=== PATIENT | female | born 1940 | race Caucasian/White ===

== ENCOUNTER → 2023-04-07 15:18 | Outpatient (REF) | payer MEDICARE, BC, SELFPAY | LOC: REG 15:18 | PROVIDERS: ATTENDING PHYSICIAN Dermatology | DX: Z51.81 Encounter for therapeutic drug level monitoring (principal); Z79.899 Other long term (current) drug therapy | CPT/HCPCS: 36415; 82955 ==

== ENCOUNTER → 2023-05-16 11:24 | Outpatient (REF) | payer MEDICARE, BC, SELFPAY ==
[2023-05-16 12:31] LABS: % Eosinophils 3.1 % (0-6); % Immature Granulocytes 0.3 % (0-0.5); % Lymphocytes 27.9 % (20.5-51.1); % Monocytes 11.4 % (1.7-9.3); % Neutrophils 56.3 % (42.2-75.2); Absolute Basophils 0.1 10^3/uL (0-0.2); Absolute Eosinophils 0.2 10^3/uL (0-0.7); Absolute Lymphocytes 1.9 10^3/uL (1.2-3.4); Absolute Monocytes 0.8 10^3/uL (0.1-0.6); Absolute Neutrophils 3.8 10^3/uL (1.4-6.5); Hematocrit 38.2 % (37.0-47.0); Hemoglobin 12.9 g/dL (12.0-16.0); Mean Corp Hgb Conc. 33.8 g/dL (33.0-37.0); Mean Corpuscular Hgb 32.8 pg (27.0-31.0); Mean Corpuscular Volume 97.2 fL (81.0-99.0); Mean Platelet Volume 10.4 fL (7.4-10.4); Nucleated Red Blood Cells % 0 %; Platelet Count 268 10^3/uL (130-400); Red Blood Cell Count 3.93 10^6/uL (4.20-5.40); Red Cell Dist. Width 12.8 % (11.5-14.5); White Blood Cell Count 6.8 10^3/uL (4.8-10.8)
[2023-05-16 12:58] LABS: ALT (SGPT) 21 U/L (0-35); AST (SGOT) 37 U/L (14-36); Albumin 3.7 g/dl (3.5-5.0); Alkaline Phosphatase 85 U/L (38-126); Blood Urea Nitrogen 19 mg/dl (7-17); Calcium 9.7 mg/dl (8.4-10.2); Carbon Dioxide 25 mmol/L (22-30); Chloride 103 mmol/L (98-107); Glucose 99 mg/dl (70-99); Potassium 4.7 mmol/L (3.5-5.1); Sodium 138 mmol/L (135-145); Total Bilirubin 0.9 mg/dl (0.2-1.3); Total Protein 6.5 g/dl (6.3-8.2); eGFR > 60.00
== END ==
LOC: REG 11:24
PROVIDERS: ATTENDING PHYSICIAN Dermatology
DX: Z79.899 Other long term (current) drug therapy (principal); L12.0 Bullous pemphigoid
CPT/HCPCS: 36415; 80053; 85025

== ENCOUNTER → 2023-05-31 10:33 | Outpatient (REF) | payer MEDICARE, BC, SELFPAY ==
[2023-05-31 12:02] LABS: % Basophils 0.7 % (0-2); % Eosinophils 4.7 % (0-6); % Immature Granulocytes 0.6 % (0-0.5); % Lymphocytes 20.2 % (20.5-51.1); % Monocytes 13.6 % (1.7-9.3); % Neutrophils 60.2 % (42.2-75.2); Absolute Basophils 0.1 10^3/uL (0-0.2); Absolute Eosinophils 0.4 10^3/uL (0-0.7); Absolute Immature Granulocytes 0.1 10^3/uL (0-0.05); Absolute Lymphocytes 1.7 10^3/uL (1.2-3.4); Absolute Monocytes 1.2 10^3/uL (0.1-0.6); Absolute Neutrophils 5.1 10^3/uL (1.4-6.5); Hematocrit 32.7 % (37.0-47.0); Hemoglobin 10.9 g/dL (12.0-16.0); Mean Corp Hgb Conc. 33.3 g/dL (33.0-37.0); Mean Corpuscular Hgb 32.2 pg (27.0-31.0); Mean Corpuscular Volume 96.7 fL (81.0-99.0); Mean Platelet Volume 10.4 fL (7.4-10.4); Nucleated Red Blood Cells % 0.6 %; Platelet Count 277 10^3/uL (130-400); Red Blood Cell Count 3.38 10^6/uL (4.20-5.40); Red Cell Dist. Width 14.1 % (11.5-14.5); White Blood Cell Count 8.4 10^3/uL (4.8-10.8)
== END ==
LOC: HWLAB 10:33
PROVIDERS: ATTENDING PHYSICIAN Dermatology
DX: Z79.899 Other long term (current) drug therapy (principal)
CPT/HCPCS: 36415; 85025

== ENCOUNTER → 2023-07-05 13:06 | Outpatient (REF) | payer MEDICARE, BC, SELFPAY ==
[2023-07-05 15:11] LABS: % Basophils 1.2 % (0-2); % Immature Granulocytes 1.2 % (0-0.5); % Lymphocytes 85.7 % (20.5-51.1); % Monocytes 10.7 % (1.7-9.3); % Neutrophils 1.2 % (42.2-75.2); ALT (SGPT) 24 U/L (0-35); AST (SGOT) 21 U/L (14-36); Absolute Lymphocytes 0.7 10^3/uL (1.2-3.4); Absolute Monocytes 0.1 10^3/uL (0.1-0.6); Albumin 3.7 g/dl (3.5-5.0); Alkaline Phosphatase 59 U/L (38-126); Blood Urea Nitrogen 21 mg/dl (7-17); Calcium 9.3 mg/dl (8.4-10.2); Carbon Dioxide 23 mmol/L (22-30); Chloride 100 mmol/L (98-107); Glucose 108 mg/dl (70-99); Hematocrit 31.3 % (37.0-47.0); Hemoglobin 10.1 g/dL (12.0-16.0); Mean Corp Hgb Conc. 32.3 g/dL (33.0-37.0); Mean Corpuscular Hgb 33.6 pg (27.0-31.0); Nucleated Red Blood Cells % 0 %; Platelet Count 488 10^3/uL (130-400); Red Blood Cell Count 3.01 10^6/uL (4.20-5.40); Red Cell Dist. Width 13.2 % (11.5-14.5); Sodium 128 mmol/L (135-145); Total Bilirubin 0.9 mg/dl (0.2-1.3); Total Protein 6.4 g/dl (6.3-8.2); White Blood Cell Count 0.8 10^3/uL (4.8-10.8); eGFR > 60.00
== END ==
LOC: HWLAB 13:06
PROVIDERS: ATTENDING PHYSICIAN Dermatology; FAMILY PHYSICIAN Physician Assistant Medical
DX: Z79.899 Other long term (current) drug therapy (principal)
CPT/HCPCS: 36415; 80053; 85025

== ENCOUNTER → 2023-07-06 10:54 | Outpatient (REF) | payer MEDICARE, BC, SELFPAY ==
[2023-07-06 12:58] LABS: % Basophils 1.2 % (0-2); % Immature Granulocytes 0.6 % (0-0.5); % Lymphocytes 88.2 % (20.5-51.1); % Monocytes 8.7 % (1.7-9.3); % Neutrophils 1.3 % (42.2-75.2); Absolute Lymphocytes 1.4 10^3/uL (1.2-3.4); Absolute Monocytes 0.1 10^3/uL (0.1-0.6); Hematocrit 28.9 % (37.0-47.0); Hemoglobin 9.4 g/dL (12.0-16.0); Mean Corp Hgb Conc. 32.5 g/dL (33.0-37.0); Mean Corpuscular Hgb 34.1 pg (27.0-31.0); Mean Corpuscular Volume 104.7 fL (81.0-99.0); Nucleated Red Blood Cells % 1.2 %; Red Blood Cell Count 2.76 10^6/uL (4.20-5.40); Red Cell Dist. Width 13.4 % (11.5-14.5); White Blood Cell Count 1.6 10^3/uL (4.8-10.8)
[2023-07-06 13:10] LABS: Platelet Count 437 10^3/uL (130-400)
== END ==
LOC: HWLAB 10:54
PROVIDERS: ATTENDING PHYSICIAN Dermatology; FAMILY PHYSICIAN Physician Assistant Medical
DX: Z79.899 Other long term (current) drug therapy (principal)
CPT/HCPCS: 36415; 85025

== ENCOUNTER → 2023-07-14 12:11 | Outpatient (REF) | payer MEDICARE, BC, SELFPAY ==
[2023-07-14 15:34] LABS: Absolute Neutrophils 0.1 10^3/uL (1.4-6.5); Hematocrit 27.4 % (37.0-47.0); Hemoglobin 9.4 g/dL (12.0-16.0); Mean Corp Hgb Conc. 34.3 g/dL (33.0-37.0); Mean Corpuscular Hgb 32.8 pg (27.0-31.0); Mean Corpuscular Volume 95.5 fL (81.0-99.0); Mean Platelet Volume 9.6 fL (7.4-10.4); Nucleated Red Blood Cells % 0 %; Platelet Count 632 10^3/uL (130-400); Red Blood Cell Count 2.87 10^6/uL (4.20-5.40); White Blood Cell Count 1.5 10^3/uL (4.8-10.8)
[2023-07-14 15:44] LABS: ALT (SGPT) 17 U/L (0-35); AST (SGOT) 23 U/L (14-36); Albumin 3.1 g/dl (3.5-5.0); Alkaline Phosphatase 58 U/L (38-126); Blood Urea Nitrogen 9 mg/dl (7-17); Calcium 8.8 mg/dl (8.4-10.2); Carbon Dioxide 24 mmol/L (22-30); Chloride 90 mmol/L (98-107); Glucose 117 mg/dl (70-99); Potassium 3.5 mmol/L (3.5-5.1); Sodium 126 mmol/L (135-145); Total Bilirubin 0.7 mg/dl (0.2-1.3); Total Protein 5.9 g/dl (6.3-8.2); eGFR > 60.00
[2023-07-14 16:11] LABS: Band Neutrophils 0 % (0-3); Segmented Neutrophils 11 % (42-75)
[2023-07-14 16:12] LABS: Absolute Neutrophils -Man Diff 0.1 10^3/uL (1.4-6.5); Lymphocytes 73 % (20-51); Monocytes 16 % (2-9); Normal RBC Morphology Yes; Platelets Checked Yes; Total Cells Counted 100
== END ==
LOC: HWLAB 12:11
PROVIDERS: ATTENDING PHYSICIAN Dermatology; FAMILY PHYSICIAN Physician Assistant Medical
DX: Z79.899 Other long term (current) drug therapy (principal)
CPT/HCPCS: 36415; 80053; 85025

== ENCOUNTER → 2023-07-22 12:13 | Outpatient (REF) | payer MEDICARE, BC, SELFPAY ==
[2023-07-22 15:54] LABS: Hematocrit 29.4 % (37.0-47.0); Hemoglobin 9.5 g/dL (12.0-16.0); Mean Corp Hgb Conc. 32.3 g/dL (33.0-37.0); Mean Platelet Volume 9.7 fL (7.4-10.4); Platelet Count 442 10^3/uL (130-400); Red Blood Cell Count 2.97 10^6/uL (4.20-5.40); Red Cell Dist. Width 15.6 % (11.5-14.5)
[2023-07-22 16:20] LABS: Absolute Neutrophils -Man Diff 58.1 10^3/uL (1.4-6.5); Band Neutrophils 0 % (0-3); Lymphocytes 3 % (20-51); Monocytes 6 % (2-9); Segmented Neutrophils 83 % (42-75)
[2023-07-22 16:21] LABS: Atypical Lymphocytes 2 %; Metamyelocytes 1 % (-); Myelocytes 5 % (-); Normal RBC Morphology No; Nucleated Red Blood Cells 1 (-); Platelets Checked Yes
[2023-07-22 16:22] LABS: Hypochromasia Slight; Total Cells Counted 100
== END ==
LOC: HWLAB 12:13
PROVIDERS: ATTENDING PHYSICIAN Internal Medicine Hematology & Oncology; FAMILY PHYSICIAN Physician Assistant Medical
DX: R71.8 Other abnormality of red blood cells (principal); D70.9 Neutropenia, unspecified; D64.9 Anemia, unspecified
CPT/HCPCS: 36415; 85025

== ENCOUNTER → 2023-07-29 10:50 | Outpatient (REF) | payer MEDICARE, BC, SELFPAY ==
[2023-07-29 12:23] LABS: % Basophils 0.4 % (0-2); % Immature Granulocytes 2.6 % (0-0.5); % Lymphocytes 9.4 % (20.5-51.1); % Neutrophils 83.6 % (42.2-75.2); Absolute Basophils 0.2 10^3/uL (0-0.2); Absolute Lymphocytes 3.7 10^3/uL (1.2-3.4); Absolute Monocytes 1.5 10^3/uL (0.1-0.6); Absolute Neutrophils 32.6 10^3/uL (1.4-6.5); Hematocrit 29.4 % (37.0-47.0); Hemoglobin 9.8 g/dL (12.0-16.0); Mean Corp Hgb Conc. 33.3 g/dL (33.0-37.0); Mean Corpuscular Hgb 31.3 pg (27.0-31.0); Mean Corpuscular Volume 93.9 fL (81.0-99.0); Mean Platelet Volume 10.9 fL (7.4-10.4); Nucleated Red Blood Cells % 0.1 %; Platelet Count 201 10^3/uL (130-400); Red Blood Cell Count 3.13 10^6/uL (4.20-5.40); Red Cell Dist. Width 17.1 % (11.5-14.5)
== END ==
LOC: HWLAB 10:50
PROVIDERS: ATTENDING PHYSICIAN Internal Medicine Hematology & Oncology; FAMILY PHYSICIAN Physician Assistant Medical
DX: R71.8 Other abnormality of red blood cells (principal); D70.9 Neutropenia, unspecified; D64.9 Anemia, unspecified
CPT/HCPCS: 36415; 85025

== ENCOUNTER → 2023-07-29 15:14 | Outpatient (REF) | payer MEDICARE, BC, SELFPAY | LOC: RAD 15:14 | PROVIDERS: ATTENDING PHYSICIAN Internal Medicine Hematology & Oncology | DX: R71.8 Other abnormality of red blood cells (principal); D70.9 Neutropenia, unspecified; D64.9 Anemia, unspecified; R22.42 Localized swelling, mass and lump, left lower limb | CPT/HCPCS: 36415; 85025; 93971 ==

== ENCOUNTER → 2023-08-26 10:31 | Outpatient (REF) | payer MEDICARE, BC, SELFPAY ==
[2023-08-26 12:57] LABS: % Basophils 0.7 % (0-2); % Eosinophils 2.5 % (0-6); % Immature Granulocytes 0.1 % (0-0.5); % Lymphocytes 31.7 % (20.5-51.1); Absolute Basophils 0.1 10^3/uL (0-0.2); Absolute Eosinophils 0.2 10^3/uL (0-0.7); Absolute Lymphocytes 2.2 10^3/uL (1.2-3.4); Absolute Monocytes 0.6 10^3/uL (0.1-0.6); Absolute Neutrophils 3.8 10^3/uL (1.4-6.5); Hematocrit 35.8 % (37.0-47.0); Hemoglobin 11.5 g/dL (12.0-16.0); Mean Corp Hgb Conc. 32.1 g/dL (33.0-37.0); Mean Corpuscular Hgb 30.7 pg (27.0-31.0); Mean Corpuscular Volume 95.5 fL (81.0-99.0); Nucleated Red Blood Cells % 0 %; Platelet Count 264 10^3/uL (130-400); Red Blood Cell Count 3.75 10^6/uL (4.20-5.40); Red Cell Dist. Width 15.5 % (11.5-14.5); White Blood Cell Count 6.8 10^3/uL (4.8-10.8)
[2023-08-26 13:51] LABS: ALT (SGPT) 14 U/L (0-35); AST (SGOT) 29 U/L (14-36); Alkaline Phosphatase 75 U/L (38-126); Blood Urea Nitrogen 16 mg/dl (7-17); Calcium 9.5 mg/dl (8.4-10.2); Carbon Dioxide 26 mmol/L (22-30); Chloride 101 mmol/L (98-107); Glucose 94 mg/dl (70-99); HDL Cholesterol 77 mg/dl; LDL Cholesterol, Calculated 72 mg/dl; Potassium 4.5 mmol/L (3.5-5.1); Sodium 136 mmol/L (135-145); Total Bilirubin 0.6 mg/dl (0.2-1.3); Total Cholesterol 174 mg/dl (50-199); Total Protein 6.7 g/dl (6.3-8.2); Triglyceride 126 mg/dl (10-149); Very Low Density Lipoprotein 25 mg/dl (0-30); eGFR > 60.00
[2023-08-26 14:24] LABS: Glycohemoglobin (HgbA1c) 5.1 % (4.0-5.6)
== END ==
LOC: HWLAB 10:31
PROVIDERS: ATTENDING PHYSICIAN Internal Medicine Hematology & Oncology; FAMILY PHYSICIAN Physician Assistant Medical
DX: D70.2 Other drug-induced agranulocytosis (principal); Z87.09 Personal history of other diseases of the respiratory system; D72.819 Decreased white blood cell count, unspecified; R63.4 Abnormal weight loss; R71.8 Other abnormality of red blood cells; D70.9 Neutropenia, unspecified; D64.9 Anemia, unspecified; R73.01 Impaired fasting glucose; E78.5 Hyperlipidemia, unspecified; I25.10 Atherosclerotic heart disease of native coronary artery without angina pectoris
CPT/HCPCS: 36415; 80053; 80061; 83036; 84443; 85025

== ENCOUNTER → 2023-09-27 11:25 | Outpatient (REF) | payer MEDICARE, BC, SELFPAY ==
[2023-09-27 15:20] LABS: % Basophils 0.4 % (0-2); % Eosinophils 1.3 % (0-6); % Immature Granulocytes 0.4 % (0-0.5); % Lymphocytes 34.2 % (20.5-51.1); % Monocytes 7.5 % (1.7-9.3); % Neutrophils 56.2 % (42.2-75.2); Absolute Eosinophils 0.1 10^3/uL (0-0.7); Absolute Lymphocytes 2.6 10^3/uL (1.2-3.4); Absolute Monocytes 0.6 10^3/uL (0.1-0.6); Absolute Neutrophils 4.3 10^3/uL (1.4-6.5); Hematocrit 33.4 % (37.0-47.0); Hemoglobin 11.4 g/dL (12.0-16.0); Mean Corp Hgb Conc. 34.1 g/dL (33.0-37.0); Mean Corpuscular Hgb 31.2 pg (27.0-31.0); Mean Corpuscular Volume 91.5 fL (81.0-99.0); Mean Platelet Volume 10.1 fL (7.4-10.4); Nucleated Red Blood Cells % 0 %; Platelet Count 274 10^3/uL (130-400); Red Blood Cell Count 3.65 10^6/uL (4.20-5.40); Red Cell Dist. Width 13.3 % (11.5-14.5); White Blood Cell Count 7.7 10^3/uL (4.8-10.8)
== END ==
LOC: HWLAB 11:25
PROVIDERS: ATTENDING PHYSICIAN Internal Medicine Hematology & Oncology; FAMILY PHYSICIAN Physician Assistant Medical
DX: R71.8 Other abnormality of red blood cells (principal); D70.9 Neutropenia, unspecified; D64.9 Anemia, unspecified
CPT/HCPCS: 36415; 85025

== ENCOUNTER → 2023-10-21 10:32 | Outpatient (REF) | payer MEDICARE, BC, SELFPAY ==
[2023-10-21 12:34] LABS: % Basophils 0.7 % (0-2); % Eosinophils 2.4 % (0-6); % Immature Granulocytes 0.4 % (0-0.5); % Lymphocytes 35.9 % (20.5-51.1); % Neutrophils 50.6 % (42.2-75.2); Absolute Basophils 0.1 10^3/uL (0-0.2); Absolute Eosinophils 0.2 10^3/uL (0-0.7); Absolute Monocytes 0.8 10^3/uL (0.1-0.6); Absolute Neutrophils 4.2 10^3/uL (1.4-6.5); Hematocrit 36.6 % (37.0-47.0); Hemoglobin 12.3 g/dL (12.0-16.0); Mean Corp Hgb Conc. 33.6 g/dL (33.0-37.0); Mean Corpuscular Hgb 31.9 pg (27.0-31.0); Mean Corpuscular Volume 95.1 fL (81.0-99.0); Mean Platelet Volume 9.6 fL (7.4-10.4); Nucleated Red Blood Cells % 0 %; Platelet Count 259 10^3/uL (130-400); Red Blood Cell Count 3.85 10^6/uL (4.20-5.40); Red Cell Dist. Width 12.3 % (11.5-14.5); White Blood Cell Count 8.3 10^3/uL (4.8-10.8)
== END ==
LOC: HWLAB 10:32
PROVIDERS: ATTENDING PHYSICIAN Internal Medicine Hematology & Oncology; FAMILY PHYSICIAN Physician Assistant Medical
DX: R71.8 Other abnormality of red blood cells (principal); D70.9 Neutropenia, unspecified; D64.9 Anemia, unspecified
CPT/HCPCS: 36415; 85025

== ENCOUNTER → 2023-12-12 10:56 | Outpatient (REF) | payer MEDICARE, BC, SELFPAY | LOC: HWWDC 10:56 | PROVIDERS: ATTENDING PHYSICIAN Physician Assistant Medical | DX: Z12.31 Encounter for screening mammogram for malignant neoplasm of breast (principal) | CPT/HCPCS: 77063; 77067 ==

== ENCOUNTER → 2024-02-27 11:06 | Outpatient (REF) | payer MEDICARE, BC, SELFPAY ==
[2024-02-27 18:02] LABS: % Basophils 0.5 % (0-2); % Eosinophils 1.7 % (0-6); % Immature Granulocytes 0.2 % (0-0.5); % Lymphocytes 21.5 % (20.5-51.1); % Monocytes 8.8 % (1.7-9.3); % Neutrophils 67.3 % (42.2-75.2); ALT (SGPT) 17 U/L (0-35); AST (SGOT) 27 U/L (14-36); Absolute Eosinophils 0.2 10^3/uL (0-0.7); Absolute Lymphocytes 1.9 10^3/uL (1.2-3.4); Absolute Monocytes 0.8 10^3/uL (0.1-0.6); Absolute Neutrophils 5.9 10^3/uL (1.4-6.5); Albumin 4.4 g/dl (3.5-5.0); Alkaline Phosphatase 47 U/L (38-126); Blood Urea Nitrogen 18 mg/dl (7-17); Calcium 9.4 mg/dl (8.4-10.2); Carbon Dioxide 28 mmol/L (22-30); Chloride 100 mmol/L (98-107); Glucose 96 mg/dl (70-99); Hemoglobin 12.9 g/dL (12.0-16.0); Magnesium 1.6 mg/dl (1.6-2.3); Mean Corp Hgb Conc. 33.1 g/dL (33.0-37.0); Mean Corpuscular Hgb 33.5 pg (27.0-31.0); Mean Corpuscular Volume 101.3 fL (81.0-99.0); Nucleated Red Blood Cells % 0 %; Platelet Count 301 10^3/uL (130-400); Potassium 4.3 mmol/L (3.5-5.1); Red Blood Cell Count 3.85 10^6/uL (4.20-5.40); Red Cell Dist. Width 12.2 % (11.5-14.5); Sodium 139 mmol/L (135-145); Total Bilirubin 0.6 mg/dl (0.2-1.3); Total Protein 7.2 g/dl (6.3-8.2); White Blood Cell Count 8.8 10^3/uL (4.8-10.8); eGFR > 60.00
[2024-02-27 18:08] LABS: Free T4 0.75 ng/dl (0.78-2.19)
[2024-02-27 18:22] LABS: TSH 1.27 uIU/ml (0.47-4.68)
[2024-02-29 10:25] LABS: Intact PTH 30.8 pg/ml (13.6-85.8)
[2024-03-01 01:06] LABS: Phosphatidylserine Ab, IgA 0 APS (0-19); Phosphatidylserine Ab, IgG 0 GPS (0-15); Phosphatidylserine Ab, IgM 0 MPS (0-21)
[2024-03-01 01:43] LABS: Beta-2-Glycoprotein I Ab. IgA <10 SAU (<=20); Beta-2-Glycoprotein I Ab. IgG <10 SGU (<=20); Beta-2-Glycoprotein I Ab. IgM <10 SMU (<=20)
[2024-03-01 02:43] LABS: Vitamin D 1,25 Dihydroxy 43.8 pg/mL (19.9-79.3)
[2024-03-01 08:05] LABS: Cardiolipin IgA Antibody <10 APL (<=11); Cardiolipin IgM Antibody 13 MPL (<=12); Cardiolipin Igg Antibody <10 GPL (<=14)
== END ==
LOC: HWLAB 11:06
PROVIDERS: ATTENDING PHYSICIAN Student in an Organized Health Care Education/Training Program; FAMILY PHYSICIAN Physician Assistant Medical
DX: E55.9 Vitamin D deficiency, unspecified (principal); G60.9 Hereditary and idiopathic neuropathy, unspecified; I25.10 Atherosclerotic heart disease of native coronary artery without angina pectoris; I61.9 Nontraumatic intracerebral hemorrhage, unspecified; M81.0 Age-related osteoporosis without current pathological fracture; Z91.81 History of falling; Z87.310 Personal history of (healed) osteoporosis fracture
CPT/HCPCS: 36415; 80053; 82652; 83735; 83970; 84439; 84443; 85025; 86146; 86147; 86148

== ENCOUNTER → 2024-04-16 12:57 | Outpatient (REF) | payer MEDICARE, BC, SELFPAY | LOC: HWRAD 12:57 | PROVIDERS: ATTENDING PHYSICIAN Student in an Organized Health Care Education/Training Program; FAMILY PHYSICIAN Physician Assistant Medical | DX: M81.0 Age-related osteoporosis without current pathological fracture (principal); E55.9 Vitamin D deficiency, unspecified | CPT/HCPCS: 77080 ==

== ENCOUNTER 2024-06-25 10:23 | Emergency (ER) | payer MEDICARE, BC, SELFPAY ==
[2024-06-25 10:31] VITALS: BP 157/64
--- NOTE | 2024-06-25 10:33 | ED.GENMED ---
History of Present Illness
General
Chief Complaint: Dizziness
Source: patient and ambulance crew
Time Seen by Provider: 06/25/24 10:23
History of Present Illness
History of Present Illness:
84-year-old female with past medical history of atrial fibrillation, CAD status postcardiac stenting, hypertension, hyperlipidemia, valvular disorder, previous intracranial bleeding, breast cancer status postmastectomy presenting to the emergency
department from home via EMS for evaluation after she awoke feeling dizzy describing the sensation to be as if everything was spinning, seem to be worse with movement follow-up does note at present time the dizziness seems to be resolved. Patient
notes that at the beginning of the month she had a fall resulting in a right pelvic fracture, recently got discharged from her rehab facility back home where she currently lives on her own. Patient does admit to nasal congestion/allergies over the
last 1 to 2 weeks and she 'has a lot of gunk in her sinuses'. Patient also notes that she has myringotomy tubes in both ears over the last 2 years due to increased fluid in both the ears. Patient denies any fevers, headache, visual disturbances,
focal weakness or numbness, chest pain, shortness of breath or any other concerns at this time.
Past History
Past History
ED Past Medical History: Arrthythmia (Atrial fib), CAD, HTN, Hypercholesterolemia and Other (Cellulitis, anemia, glaucoma, osteoporosis, breast cancer)
ED Past Surgical History: Orthopedic (R ankle fracture with surg,) and Other (Cataracts, R mastectomy)
Social History
Tobacco: Former smoker
Alcohol: Occasional
Drug: None
Personal:
Living: alone
Employment: Retired
Family History
Family History: Other
Review of Systems
Review of Systems
All Other Systems: ROS reviewed and negative except as documented in HPI and ROS
Phy Exam
Physical Exam
Physical Exam:
GENERAL: Alert , in no apparent distress
HEAD: NCAT
EYE: pupils equal and reactive, EOMI, very questionable faint horizontal nystagmus to the right
NECK: Supple
ENT: o/p clr, mmm.
CARDIAC: Normal rate and rhythm. Occasional PAC on telemetry
LUNGS: Clear breath sounds bilaterally, no acute respiratory distress, no wheezes/rales/rhonchi
ABDOMEN: Soft, without focal tenderness, no r/g, no cvat
NEUROLOGICAL: Alert and oriented, no focal neuro deficits, moves all extremities
SKIN: Warm and dry, skin intact.
MUSCULOSKELETAL: No edema, well perfused.
PSYCH: Normal and appropriate interaction.
Scores
Heart Failure Risk
Heart Failure Risk Score: Not Applicable
Heart Score for Chest Pain Patients
STEMI patient?: Not applicable
Withdrawal Assessment of Alcohol
Withdrawal Assessment Completed?: Not applicable
Course
Orders/Labs/Results
Orders:
Orders
06/25/24 10:31
CT Head W/o Iv Contrast Urgent
Comment:
Reason For Exam: vertigo, recent fall
Physical Therapy Consult [Pt Eval And Treat] Urgent
Treatment: Vestibular therapy, recent right pelvic fx
Activity Level: Ambulate
06/25/24 10:32
Electrocardiogram (*1) Urgent
Reason for Study: Vertigo / Dizzy
EKG- Treatment ONCE
06/25/24 10:36
Complete Blood Count/With Diff Urgent
Comprehensive Metabolic Panel Urgent
Magnesium Urgent
Troponin I Urgent
06/25/24 10:37
Meclizine [Antivert] 25 mg PO NOW STA
06/25/24 10:39
Vital Signs- Treatment ONCE
Frequency: Once
Comment: BP
Abnormal Lab Results
06/25/24
10:36
RBC 3.47 L 10^6/uL
(4.20-5.40)
Hgb 11.2 L g/dL
(12.0-16.0)
Hct 32.5 L %
(37.0-47.0)
MCH 32.3 H pg
(27.0-31.0)
Abs Immat Gran (auto) 0.1 H 10^3/uL
(0-0.05)
Absolute Neuts (auto) 7.5 H 10^3/uL
(1.4-6.5)
Absolute Monos (auto) 0.9 H 10^3/uL
(0.1-0.6)
Lymphocytes % 16.7 L %
(20.5-51.1)
Sodium 133 L mmol/L
(135-145)
Creatinine 0.5 L mg/dL
(0.6-1.0)
Glucose 121 H mg/dl
(70-99)
Alkaline Phosphatase 144 H U/L
(38-126)
06/25/24 10:36
06/25/24 10:36
Vital Signs
Initial and Last Documented VS:
Initial Vital Signs
Temp Pulse Resp Pulse Ox
97.9 F 68 20 97
06/25/24 10:24 06/25/24 10:24 06/25/24 10:24 06/25/24 10:24
Last Documented Vital Signs
Temp Pulse Resp BP Pulse Ox
98.4 F 64 18 144/74 95
06/25/24 12:55 06/25/24 12:55 06/25/24 12:55 06/25/24 12:55 06/25/24 12:55
MDM/Problems Addressed
Differential Diagnosis Includes:
BPPV, labyrinthitis, central cause of vertigo/cerebellar CVA considered given patient's known history of A-fib, intracranial bleeding, electrolyte derangement
MDM/Problems Addressed:
84-year-old female presenting to the emergency department for evaluation of vertiginous symptoms that began earlier this morning, patient noting the symptoms seem to be improved at time of my exam, did not receive any medications prior to arrival.
She does have a questionable horizontal nystagmus on exam. Hemodynamically patient is stable. Given her history of previous intracranial bleeding, atrial fibrillation and being anticoagulated will obtain CT of the head. Labs and EKG ordered.
Antivert ordered for the vertigo. Physical therapy consult ordered given patient's recent fall/pelvic fracture to assess her stability as well as to perform vestibular therapy. Disposition pending
Chronic conditions affecting care: Arrhythmia
*Radiology
Radiology exam reviewed: radiology read reviewed
*Pulse Oximetry
Patient hypoxic: no
*EKG
Interpreted by ED Provider?: Yes
Heart Rate: 63
Rate: normal
Rhythm: sinus and PAC's
Ischemia: no ischemia
*Spindle Tester Interpretation
Rate: normal
Rhythm: sinus and PAC's
*Critical Care Note
Total Time (30-74mins, 75-104mins- exclusive of procedures): Not Applicable
Data Reviewed
Review of Other/Old Records Reveals: Records
Patient Management
Social determinants of health affecting care: Living situation and Strong social support
Escalation/DeEscalation of care consider admission/obs:
Patient's labs reassuring, CT of the head without any acute pathologies. Patient with continued relief following meclizine. Seen by physical therapy who also agrees patient's symptoms are likely peripheral and patient was able to ambulate
unassisted with steady gait. No ataxia. Patient and family feel comfortable with patient being discharged home. Given her chronic history of sinus related issues I did recommend close follow-up with ENT. Patient aware of return precautions to
the emergency department. Stable for discharge home.
ED Attending Note
-
Portions of this chart may have been created with voice recognition software.� Occasional wrong word or��sound alike� substitutions may have occurred due to the inherent limitations of voice recognition software.
Discharge Plan
Departure
Patient Disposition: Home (Routine Discharge)
Date of Disposition: 06/25/24
Time of Disposition: 12:29
Patient with high blood pressure during this ER visit?: Yes
Discharge Problem:
Vertigo
Instructions: Vertigo (a Type of Dizziness) (DC)
Prescriptions:
New
meclizine 25 mg tablet
25 mg PO BID PRN (Reason: dizziness) Qty: 12 0RF
No Action
coenzyme B90-lxhrnys E [Co Q-10 (with Vit E)] 1 EACH capsule
100 mg PO DAILY
losartan 100 MG tablet
100 mg PO DAILY
rosuvastatin 5 MG tablet
5 mg PO HS
cholecalciferol (vitamin D3) 1,000 UNITS tablet
1,000 units PO DAILY
hydrochlorothiazide 12.5 MG tablet
12.5 mg PO SUTUFR
Lactobac 2-Bifido 1-S. therm [High Potency Probiotic] 1 CAP capsule
1 cap PO DAILY
rivaroxaban [Xarelto] 20 MG tablet
20 mg PO HS
multivitamin with folic acid [Tab-A-Camryn] 1 TABLET tablet
1 tab PO DAILY
carvedilol 12.5 MG tablet
12.5 mg PO BID
cyanocobalamin (vitamin B-12) 100 MCG tablet
1,000 mcg PO DAILY
ketotifen fumarate [Zaditor] 1 DROP drops
1 drp BOTH EYES DAILYPRN PRN (Reason: ALLERGY)
fluticasone propionate 1 SPRAY spray,suspension
1 spray intranasal DAILY
biotin 2,500 MCG capsule
2,500 mcg PO DAILY
sotalol 120 MG tablet
120 mg PO BID Qty: 60 11RF
magnesium chloride [Mag-Delay] 70 MG tablet,delayed release (DR/EC)
70 mg PO QID Qty: 20 0RF
Referrals:
Myles Garcia PA-C [Family Provider] -
Interventions
Interventions:
*Risk Screen - Suicide Last Done: 06/25/24 10:24
*General Assessment Last Done: 06/25/24 10:38
*Neglect/Abuse Screening Last Done: 06/25/24 10:24
*ED- Fall Risk Assessment Last Done: 06/25/24 10:38
*ED COVID-19 Vaccine History Last Done: 06/25/24 10:24
*Nursing Disposition Last Done: 06/25/24 12:55
ED- Neurological Assessment Last Done: 06/25/24 10:38
ED- Cardiac Assessment Last Done: 06/25/24 10:38
ED Swallowing Screen Last Done: 06/25/24 11:32
Discharge Date and Time
Discharge Date/Time: 06/25/24 12:55
Print Language: [place]
[2024-06-25 10:38] VITALS: BMI 23.9
[2024-06-25 11:01] LABS: % Basophils 0.6 % (0-2); % Eosinophils 2.1 % (0-6); % Immature Granulocytes 0.5 % (0-0.5); % Lymphocytes 16.7 % (20.5-51.1); % Monocytes 8.5 % (1.7-9.3); % Neutrophils 71.6 % (42.2-75.2); Absolute Basophils 0.1 10^3/uL (0-0.2); Absolute Eosinophils 0.2 10^3/uL (0-0.7); Absolute Immature Granulocytes 0.1 10^3/uL (0-0.05); Absolute Lymphocytes 1.7 10^3/uL (1.2-3.4); Absolute Monocytes 0.9 10^3/uL (0.1-0.6); Absolute Neutrophils 7.5 10^3/uL (1.4-6.5); Hematocrit 32.5 % (37.0-47.0); Hemoglobin 11.2 g/dL (12.0-16.0); Mean Corp Hgb Conc. 34.5 g/dL (33.0-37.0); Mean Corpuscular Hgb 32.3 pg (27.0-31.0); Mean Corpuscular Volume 93.7 fL (81.0-99.0); Mean Platelet Volume 9.1 fL (7.4-10.4); Nucleated Red Blood Cells % 0 %; Platelet Count 352 10^3/uL (130-400); Red Blood Cell Count 3.47 10^6/uL (4.20-5.40); Red Cell Dist. Width 12.4 % (11.5-14.5); White Blood Cell Count 10.4 10^3/uL (4.8-10.8)
[2024-06-25] MEDS: ANTIVERT 25 MG PO (11:34)
[2024-06-25 11:35] LABS: ALT (SGPT) 12 U/L (0-35); AST (SGOT) 25 U/L (14-36); Albumin 3.8 g/dl (3.5-5.0); Alkaline Phosphatase 144 U/L (38-126); Blood Urea Nitrogen 12 mg/dl (7-17); Calcium 9.2 mg/dl (8.4-10.2); Carbon Dioxide 22 mmol/L (22-30); Chloride 102 mmol/L (98-107); Estimated Creatinine Clearance 60 ml/min; Glucose 121 mg/dl (70-99); Magnesium 1.6 mg/dl (1.6-2.3); Potassium 4.3 mmol/L (3.5-5.1); Sodium 133 mmol/L (135-145); Total Bilirubin 0.5 mg/dl (0.2-1.3); Total Protein 6.4 g/dl (6.3-8.2); eGFR > 60.00
[2024-06-25 11:46] LABS: Troponin I < 0.012 ng/ml
[2024-06-25 12:25] VITALS: BP 145/65; BP 147/93
[2024-06-25 12:55] VITALS: BP 144/74
--- NOTE | 2024-06-25 13:05 | EDRN ---
Reviewed discharge instructions with patient. Verbalized understanding. Taken to lobby to wait for her son to pick her up. Daughter is with the patient.
== END 2024-06-25 12:55 | disposition home or self-care (01) ==
LOC: EMR 10:23
PROVIDERS: Physician Assistant Medical; EMERGENCY PHYSICIAN Emergency Medicine; FAMILY PHYSICIAN Physician Assistant Medical
DX: R42 Dizziness and giddiness (principal); I48.91 Unspecified atrial fibrillation; I25.10 Atherosclerotic heart disease of native coronary artery without angina pectoris; I10 Essential (primary) hypertension; E78.00 Pure hypercholesterolemia, unspecified; M81.0 Age-related osteoporosis without current pathological fracture; Z85.3 Personal history of malignant neoplasm of breast; Z86.73 Personal history of transient ischemic attack (TIA), and cerebral infarction without residual deficits; Z87.891 Personal history of nicotine dependence; Z90.11 Acquired absence of right breast and nipple
CPT/HCPCS: 99284; 70450; 80053; 83735; 84484; 85025; 93005

== ENCOUNTER → 2024-06-28 16:00 | Outpatient (REF) | payer MEDICARE, BC, SELFPAY ==
[2024-06-28 17:29] LABS: ALT (SGPT) 18 U/L (0-35); AST (SGOT) 27 U/L (14-36); Albumin 3.7 g/dl (3.5-5.0); Alkaline Phosphatase 164 U/L (38-126); Blood Urea Nitrogen 20 mg/dl (7-17); Calcium 9.5 mg/dl (8.4-10.2); Carbon Dioxide 25 mmol/L (22-30); Chloride 101 mmol/L (98-107); Glucose 112 mg/dl (70-99); Potassium 4.5 mmol/L (3.5-5.1); Sodium 136 mmol/L (135-145); Total Bilirubin 0.5 mg/dl (0.2-1.3); Total Protein 6.4 g/dl (6.3-8.2); eGFR > 60.00
== END ==
LOC: CLAB 16:00
PROVIDERS: ATTENDING PHYSICIAN Physician Assistant Medical
DX: E27.8 Other specified disorders of adrenal gland (principal)
CPT/HCPCS: 36415; 80053

== ENCOUNTER → 2024-08-27 11:42 | Outpatient (REF) | payer MEDICARE, BC, SELFPAY | LOC: PAVMRI 11:42 | PROVIDERS: ATTENDING PHYSICIAN Physician Assistant Medical | DX: R05.3 Chronic cough (principal); E27.8 Other specified disorders of adrenal gland | CPT/HCPCS: 74183; A9575 ==

== ENCOUNTER → 2024-10-19 11:09 | Outpatient (REF) | payer MEDICARE, BC, SELFPAY | LOC: HWRCS 11:09 | PROVIDERS: ATTENDING PHYSICIAN Internal Medicine Cardiovascular Disease; FAMILY PHYSICIAN Physician Assistant Medical | DX: I34.0 Nonrheumatic mitral (valve) insufficiency (principal) | CPT/HCPCS: 93306 ==

== ENCOUNTER → 2024-11-14 12:02 | Outpatient (REF) | payer MEDICARE, BC, SELFPAY ==
[2024-11-14 13:08] LABS: Hematocrit 36.4 % (37.0-47.0); Hemoglobin 12.4 g/dL (12.0-16.0); Mean Corp Hgb Conc. 34.1 g/dL (33.0-37.0); Mean Corpuscular Volume 95.3 fL (81.0-99.0); Nucleated Red Blood Cells % 0 %; Platelet Count 252 10^3/uL (130-400); Red Cell Dist. Width 12.6 % (11.5-14.5)
[2024-11-14 14:00] LABS: ALT (SGPT) 25 U/L (0-35); AST (SGOT) 26 U/L (14-36); Albumin 4.4 g/dl (3.5-5.0); Alkaline Phosphatase 68 U/L (38-126); Blood Urea Nitrogen 15 mg/dl (7-17); Calcium 9.9 mg/dl (8.4-10.2); Carbon Dioxide 27 mmol/L (22-30); Chloride 101 mmol/L (98-107); Glucose 104 mg/dl (70-99); HDL Cholesterol 86 mg/dl; LDL Cholesterol, Calculated 79 mg/dl; Potassium 4.3 mmol/L (3.5-5.1); Sodium 132 mmol/L (135-145); Total Protein 7.2 g/dl (6.3-8.2); Very Low Density Lipoprotein 28 mg/dl (0-30); eGFR > 60.00
[2024-11-14 14:11] LABS: TSH 1.77 uIU/ml (0.47-4.68)
[2024-11-14 14:22] LABS: Glycohemoglobin (HgbA1c) 5.1 % (4.0-5.6)
== END ==
LOC: HWLAB 12:02
PROVIDERS: ATTENDING PHYSICIAN Dermatology; FAMILY PHYSICIAN Physician Assistant Medical
DX: E27.8 Other specified disorders of adrenal gland (principal); I48.0 Paroxysmal atrial fibrillation; I10 Essential (primary) hypertension; D64.9 Anemia, unspecified; E78.2 Mixed hyperlipidemia; I25.10 Atherosclerotic heart disease of native coronary artery without angina pectoris; R73.01 Impaired fasting glucose; L12.0 Bullous pemphigoid; Z79.899 Other long term (current) drug therapy
CPT/HCPCS: 36415; 80053; 80061; 83036; 84443; 85025

== ENCOUNTER → 2024-12-12 12:09 | Outpatient (REF) | payer MEDICARE, BC, SELFPAY | LOC: HWWDC 12:09 | PROVIDERS: ATTENDING PHYSICIAN Physician Assistant Medical | DX: Z12.31 Encounter for screening mammogram for malignant neoplasm of breast (principal) | CPT/HCPCS: 77063; 77067 ==

== ENCOUNTER 2025-02-07 06:34 | Day surgery (SDC) | payer MEDICARE, BC, SELFPAY ==
[2025-01-23 14:00] VITALS: BMI 25.2
[2025-02-07] VITALS (10 sets, daily range): BP systolic 163–218; BP diastolic 80–206; BMI 25.2
[2025-02-07] MEDS: NORMOSOL-R/PLASMALYTE-A 1000 IV (10:23)
== END 2025-02-07 16:27 | disposition home or self-care (01) ==
LOC: SDS 06:34
PROVIDERS: ATTENDING PHYSICIAN Otolaryngology; FAMILY PHYSICIAN Physician Assistant Medical
DX: H72.91 Unspecified perforation of tympanic membrane, right ear (principal); H91.91 Unspecified hearing loss, right ear
CPT/HCPCS: 69631